=== PATIENT | female | born 1985 | race Caucasian/White ===

== ENCOUNTER 2021-01-20 17:19 | Emergency (ER) | payer BC, MEDICAID, SELFPAY ==
--- NOTE | 2021-01-20 18:18 | XRR_ITS ---
PROCEDURE INFORMATION: Exam: XR Pelvis Exam date and time: 01/20/2021 6:18 PM Age: 35 years old Clinical indication: Injury or trauma; Fall; Blunt trauma (contusions or hematomas); Does not apply; Pelvic region; Additional info: Rule out coccygeal fracture TECHNIQUE: Imaging protocol: XR pelvis. Views: 1 or 2 view. COMPARISON: No relevant prior studies available. FINDINGS: Bones/joints: No acute fracture. No dislocation. Normal bone mineralization. No joint effusion. Joint spaces are maintained. Soft tissues: No soft tissue swelling. No radiopaque foreign body. XR/XR pelvis min 3V 22005 IMPRESSION: No acute fracture. CT scan would be recommended if there is continuing clinical concern for fracture.
[2021-01-20 19:03] VITALS: BP 106/64; PULSE 85; RESP 18; TEMP 37.1; O2SAT 100; BMI 36.6
--- NOTE | 2021-01-20 19:46 | XRR_ITS ---
PROCEDURE INFORMATION: Exam: XR Sacrum and Coccyx, 2 or More Views Exam date and time: 01/20/2021 7:46 PM Age: 35 years old Clinical indication: Injury or trauma; Fall; Blunt trauma (contusions or hematomas); Additional info: Evalute for FX TECHNIQUE: Imaging protocol: XR of the sacrum and coccyx, 2 or more views. COMPARISON: CR (PELVIS, ) 01/20/2021 6:32 PM FINDINGS: Bones/joints: . Single lateral image of the sacrum and coccyx shows no definite fracture. No dislocation. Normal bone mineralization. Soft tissues: No soft tissue swelling. No radiopaque foreign body. XR/XR sacrum coccyx min 2V 80433 IMPRESSION: Single lateral image of the sacrum and coccyx shows no definite fracture. CT scan recommended if clinical concern for fracture persists.
--- NOTE | 2021-01-20 19:52 | W.ED.GENADLT ---
HPI - General Adult General: Chief complaint: Fall Stated complaint: TAILBONE INJURY/FELL IN SHOWER Time Seen by Provider: 01/20/21 19:08 History of Present Illness: HPI narrative: 35F w/ no PMH presenting to the ED after slip and hitting the edge of the toilet. No other injuries or LOC, reports significant butt pain and difficulty walking. Onset: 1 hr ago Duration:1 hr Location:home Severity:moderate Review of Systems Narrative: Constitutional: No fever, no chills. HEENT: No vision changes CV: No chest pain, no palpitations PULM: no cough, no dyspnea. GI: No abdominal pain, no N/V/D. : No dysuria MSKEL: No muscle pain SKIN: No new rashes, no lesions. +back pain NEURO: No headache, no focal weakness. HEME: No visible bruises PSYCH: Normal mood [facility] ED Female Reproductive History: Date of last menstrual period: 07/15/20 Physical Exam Narrative: EXAM NARRATIVE: Head: Atraumatic Eyes: PERRL, conjunctiva without injection ENT: Mucous membrane moist NECK: Supple, ROM intact LUNGS: LCTAB, no crackles/rhonchi CV: RRR ABDOMEN: Soft, nontender in all quadrants EXTREMITY: Normal ROM SKIN: No rash or erythema NEURO: Awake and alert, no focal motor deficits PSYCH: Normal mood and affect : +mildline sacral tenderness to palpation, +multiple L glute knots palpated Procedures Nerve Block Nerve Block 1: Time out performed: Yes Local Anesthetic: bupivacaine 0.5% Amount of anesthesia used (mL): 5 Side: left and right Nerve Blocks: other (glute injection) Procedure Successful: Yes Patient Tolerated Procedure: well Complications: none Additional Comments: Patient has multiple knots in L glute with excruciating pain. Glute folds were cleaned with iodine solution. Chlorprep x 3 were used. Bupivacine 0.5% and kenalog were mixed dilated with 20cc of saline and injected into the areas of tenderness on exam Course Vital Signs: Vital signs: Vital Signs Temperature 98.3 F 01/20/21 20:34 Pulse Rate 88 01/20/21 20:34 Respiratory Rate 16 01/20/21 20:34 Blood Pressure 108/73 01/20/21 20:34 Pulse Oximetry 98 01/20/21 20:34 MDM - General Adult MDM Narrative: Medical decision making narrative: 35F presenting to the ED after a slip and fall from the bath tub complaining of significant pain to the butt area. On exam patient has moderate tenderness to palpation. Patient refused to move due to significant pain in the grute area Workup XR pelvis and cocygeus Intervention: lidocaine patch, norflex, tylenol, trigger point injection Please refer to the proccedure note for further information Case was signed out Dr. Alexander as patient's signifciant other requests for a different provider. The significant other is incredibly belligerent, cursing and threatneing ER staff including nurses and me. Imaging Data^: Other Imaging: Radiologist's impression: [employer] [place], [place] [address]YRzh ReportSigned Patient: Joselyn Redmond #: [id number]: 1985Acct#:[id number]/Sex: 35 / FADM Date: 01/20/21Loc: ERRoom/Bed:Attending Dr: Ordering Provider/Ordering MD: Yasmeen Ford MD Date of Service: 01/20/21 Procedure(s): XR pelvis min 3V 03453 Accession Number(s): [id number] Report Number: [id number] PROCEDURE INFORMATION: Exam: XR Pelvis Exam date and time: 01/20/2021 6:18 PM Age: 35 years old Clinical indication: Injury or trauma; Fall; Blunt trauma (contusions or hematomas); Does not apply; Pelvic region; Additional info: Rule out coccygeal fracture TECHNIQUE: Imaging protocol: XR pelvis. Views: 1 or 2 view. COMPARISON: No relevant prior studies available. FINDINGS: Bones/joints: No acute fracture. No dislocation. Normal bone mineralization. No joint effusion. Joint spaces are maintained. Soft tissues: No soft tissue swelling. No radiopaque foreign body. XR/XR pelvis min 3V 59967 IMPRESSION: No acute fracture. CT scan would be recommended if there is continuing clinical concern for fracture. Dictated By:Isela Moran MDSigned By:Isela Moran MDSigned Date/Time:01/20/211906DD/ [id number] [place], [place] [address]UDhm ReportSigned Patient: Joselyn Redmond #: [id number]: [id number]#:[id number]/Sex: 35 / FADM Date: 01/20/21Loc: ERRoom/Bed:Attending Dr: Ordering Provider/Ordering MD: Yasmeen Ford MD Date of Service: 01/20/21 Procedure(s): XR sacrum coccyx min 2V 53153 Accession Number(s): [id number] Report Number: [id number] PROCEDURE INFORMATION: Exam: XR Sacrum and Coccyx, 2 or More Views Exam date and time: 01/20/2021 7:46 PM Age: 35 years old Clinical indication: Injury or trauma; Fall; Blunt trauma (contusions or hematomas); Additional info: Evalute for FX TECHNIQUE: Imaging protocol: XR of the sacrum and coccyx, 2 or more views. COMPARISON: CR (PELVIS, ) 01/20/2021 6:32 PM FINDINGS: Bones/joints: . Single lateral image of the sacrum and coccyx shows no definite fracture. No dislocation. Normal bone mineralization. Soft tissues: No soft tissue swelling. No radiopaque foreign body. XR/XR sacrum coccyx min 2V 43457 IMPRESSION: Single lateral image of the sacrum and coccyx shows no definite fracture. CT scan recommended if clinical concern for fracture persists. Dictated By:Isela Moran MDSigned By:Isela Moran MDSigned Date/Time:01/20/21D/ 29 Discharge Plan Discharge Patient Disposition: Home Clinical Impression: Coccyx contusion Qualifiers: Encounter type: initial encounter Qualified Code(s): S30.0XXA - Contusion of lower back and pelvis, initial encounter Condition: Stable Prescriptions: New acetaminophen 500 mg tablet 500 mg PO Q6H PRN (Reason: back pain) 5 Days Qty: 20 RF: 0 lidocaine 5 % adhesive patch,medicated 1 patch topical DAILY PRN (Reason: back pain) 5 Days Qty: 5 RF: 0 orphenadrine citrate 100 mg tablet extended release 100 mg PO Q12H PRN (Reason: back pain) 5 Days Qty: 10 RF: 0 Discharge Orders: Discharge ED (Routine); Ordered 01/20/21 Ordered By: Judd Sy Discharge Diet: Advance as tolerated Discharge Activity: Resume usual activity Patient Instructions: Back Pain (ED) Activity Restrictions/Additional Instructions: Our adult protective caseworker will have you follow-up with PCP in the next few days if you still hve any symptoms with your back pain. You would be expected to have a phone call with our adult protective caseworker who will put you on the schedule. Come back to the emergency room you have any worsening pain, fever/chills, weakness in your arms or legs, difficulty pooping or peeing, sensation changes in the foot or legs, or any new or concerning complaints. Coding Level of Care Code ED Transportation Department Supervisor for Nettie Wong
[2021-01-20] MEDS: acetaminophen 500 mg Tablet PO (19:56)
[2021-01-20] MEDS: lidocaine 5% Patch 1 PATCH TOPICAL (19:57)
[2021-01-20] MEDS: triamcinolone 40 mg/mL SDV IM (19:57)
--- NOTE | 2021-01-20 20:28 | ED_ITS ---
HPI - Fall General: Chief Complaint: Fall Stated Complaint: TAILBONE INJURY/FELL IN SHOWER Time Seen by Provider: 01/20/21 19:08 History of Present Illness: HPI Narrative: Patient is a 35-year-old female with no significant past medical history. She is here with complaints of pain over her tailbone. Stated this afternoon she slipped getting out of her tub landed on the side of her to about her pedal bones and has had pain localized to the top of the gluteal cleft. Has not had no difficulty walking no numbness or tingling distal to her injury. Pain is mild was better with acetaminophen. Denies fevers chills chest pain nausea vomiting diarrhea altered mental status or syncope Review of Systems General: Reports: 10 or more systems reviewed and unremarkable except in HPI and below [facility] ED Female Reproductive History: Date of last menstrual period: 07/15/20 Physical Exam Const: COMMON NORMALS: no acute distress, average body habitus and patient o riented x3 HENMT: COMMON NORMALS: normocephalic and atraumatic HEAD & SCALP: normocephalic and atraumatic Resp: COMMON NORMALS: normal respiratory effort Back/Pelvis: COCCYX: Coccyx tenderness present Extremity: COMMON NORMALS: normal to inspection and full ROM Neuro: COMMON NORMALS: patient oriented x3 and no focal motor deficits SENSORY EXAM: Yes Normal double simultaneous stimulation for sensation Psych: ATTITUDE: Yes calm Skin: COMMON NORMALS: no rashes or lesions noted GENERAL SKIN EXAM: no rashes or lesions noted Course ED course: Pelvic x-ray was normal. Patient has some relief after the previ ous provider gave her a trigger point injection. Will get a coccygeal x-ray. Explained to her that there really is no treatment or surgery indicated for coccyx fracture would recommend that she get a donut pillow use ice and NSAIDs. No fracture on coccyx. Patient still complaining of pains we will give her shot of IM Toradol and discharge her. Vital Signs: Vital signs: Vital Signs Temperature 98.3 F 01/20/21 20:34 Pulse Rate 88 01/20/21 20:34 Respiratory Rate 16 01/20/21 20:34 Blood Pressure 108/73 01/20/21 20:34 Pulse Oximetry 98 01/20/21 20:34 MDM - Fall MDM Narrative: Medical decision making narrative: Patient is a 35-year-old female here with coccyx pain after a fall Differential includes pelvic ring fracture, ischial tuberosity fracture coccyx sacral fracture Discharge Plan Discharge Patient Disposition: Home Clinical Impression: Coccyx contusion Qualifiers: Encounter type: initial encounter Qualified Code(s): S30.0XXA - Contusion of lower back and pelvis, initial encounter Condition: Stable Prescriptions: New acetaminophen 500 mg tablet 500 mg PO Q6H PRN (Reason: back pain) 5 Days Qty: 20 RF: 0 lidocaine 5 % adhesive patch,medicated 1 patch topical DAILY PRN (Reason: back pain) 5 Days Qty: 5 RF: 0 orphenadrine citrate 100 mg tablet extended release 100 mg PO Q12H PRN (Reason: back pain) 5 Days Qty: 10 RF: 0 Discharge Orders: Discharge ED (Routine); Ordered 01/20/21 Ordered By: Judd Sy Discharge Diet: Advance as tolerated Discharge Activity: Resume usual activity Patient Instructions: Back Pain (ED) Activity Restrictions/Additional Instructions: Our registered nurse hh case manager will have you follow-up with PCP in the next few days if you still hve any symptoms with your back pain. You would be expected to have a phone call with our registered nurse hh case manager who will put you on the schedule. Come back to the emergency room you have any worsening pain, fever/chills, weakness in your arms or legs, difficulty pooping or peeing, sensation changes in the foot or legs, or any new or concerning complaints. Coding Level of Care Code ED Gre Instructor for Nettie Wong Exam Comprehensive
[2021-01-20 20:34] VITALS: BP 108/73; PULSE 88; RESP 16; TEMP 36.8; O2SAT 98
[2021-01-20] MEDS: ketorolac 60 mg/2 mL INJ IM (20:41)
--- NOTE | 2021-01-21 12:30 | DCPLANNER ---
janitorial account manager had message to speak with patient about getting established with a primary care physician. janitorial account manager called phone number [phone], unable to speak with patient or leave a voicemail for patient due to patient not accepting phone calls at this time.
== END 2021-01-20 20:57 | disposition home or self-care (01) ==
PROVIDERS: Emergency Provider Family Medicine
DX: S30.0XXA Contusion of lower back and pelvis, initial encounter (principal); W18.2XXA Fall in (into) shower or empty bathtub, initial encounter
CPT/HCPCS: 72190; 72220; 96372; 99284; J1885; J3301; J3490